=== PATIENT | female | born 1935 | race Caucasian/White ===

== ENCOUNTER 2019-11-28 14:11 | Outpatient (RCR) | payer MEDICARE, SELFPAY | END 2020-02-19 07:41 | disposition home or self-care (01) | LOC: HO.WCC 14:11 | PROVIDERS: Visit Provider Surgery | DX: I87.312 Chronic venous hypertension (idiopathic) with ulcer of left lower extremity (principal); L97.522 Non-pressure chronic ulcer of other part of left foot with fat layer exposed; L97.822 Non-pressure chronic ulcer of other part of left lower leg with fat layer exposed | CPT/HCPCS: 11042; 11045; 15271; 15272; 15275; 29580; 97606; 99212; Q4101 ==

== ENCOUNTER 2020-05-06 13:59 | Outpatient (RCR) | payer MEDICARE, SELFPAY | END 2020-10-22 10:47 | disposition home or self-care (01) | LOC: HO.WCC 13:59 | PROVIDERS: PCP Family Medicine; Visit Provider Surgery | DX: I87.331 Chronic venous hypertension (idiopathic) with ulcer and inflammation of right lower extremity (principal); L97.312 Non-pressure chronic ulcer of right ankle with fat layer exposed; Z79.899 Other long term (current) drug therapy; Z87.891 Personal history of nicotine dependence | CPT/HCPCS: 11042; 15271; 15275; 17250; 97597; 97602; 99212; 99213; 99214; Q4101 ==

== ENCOUNTER 2023-03-03 | Outpatient (RCR) | payer MEDICARE, SELFPAY ==
--- NOTE | ~2023-03-03 | XR_ITS ---
EXAMINATION: XR ANKLE, RIGHT CLINICAL INFORMATION: Nonhealing wound on right ankle. COMPARISON: None available. TECHNIQUE: AP, lateral, and mortise views of the right ankle. FINDINGS: Bony alignment and mineralization are normal. The ankle mortise is intact. No fracture, de dislocation or right ankle joint effusion is seen. Boehler's angle is normal. There is a moderate plantar calcaneal spur. Adjacent to the lateral malleolus, there is a soft tissue ulceration, without associated focal bone erosion. No foreign body is seen. XR/XR ankle RT min 3V IMPRESSION: 1. A soft tissue ulceration is seen of the lateral ankle, without underlying significant soft tissue gas or bone erosion. 2. No fracture, dislocation or right ankle joint effusion is seen.
== END 2023-09-22 12:13 | disposition home or self-care (01) ==
LOC: HO.WCC
PROVIDERS: Visit Provider Physician Assistant
DX: Z09 Encounter for follow-up examination after completed treatment for conditions other than malignant neoplasm (principal); I83.91 Asymptomatic varicose veins of right lower extremity; I73.9 Peripheral vascular disease, unspecified; I87.2 Venous insufficiency (chronic) (peripheral); Z87.891 Personal history of nicotine dependence; Z87.2 Personal history of diseases of the skin and subcutaneous tissue
CPT/HCPCS: 11042; 11043; 73610; 97597; 99212

== ENCOUNTER 2024-10-17 13:45 | Outpatient (RCR) | payer MEDICARE, SELFPAY | END 2024-11-04 16:32 | disposition home or self-care (01) | LOC: HO.WCC 13:45 | PROVIDERS: PCP Family Medicine; Visit Provider Colon & Rectal Surgery | DX: I83.023 Varicose veins of left lower extremity with ulcer of ankle (principal); L97.322 Non-pressure chronic ulcer of left ankle with fat layer exposed; I87.2 Venous insufficiency (chronic) (peripheral); Z79.2 Long term (current) use of antibiotics; Z79.899 Other long term (current) drug therapy; Z87.891 Personal history of nicotine dependence | CPT/HCPCS: 11042; 11045; 29581; 97597; 97598; 99213; 99215 ==